=== PATIENT | male | born 1955 | race American Indian/Alaskan Native ===

== ENCOUNTER 2016-12-10 13:24 | Emergency (ER) | payer OTHER ==
[~2016-12-10] VITALS: Ht 180.3 cm; Wt 106.1 kg
[~2016-12-10 13:24] MED LIST: ALEVE220 M1 PO; CEPHALEXIN500 MG PO; CIPRO500 MG PO; CYCLOBENZAPRINE10 MG PO; FLOMAX0.4 MG PO; IBUPROFEN800 MG PO; NAPROXEN500 MG PO; NEXIUM20 MG PO; NORCO 5-325 TA1 EACH PO; PENICILLIN V P500 MG PO; PEPCID40 MG PO; PERCOCET 10-321 EACH PO; PROTONIX40 MG PO; TRAMADOL HCL50 MG PO; TRAZODONE HCL50 MG PO; ULTRAM50 MG PO; ZOFRAN ODT4 MG PO; ZOFRAN4 MG PO
[2016-12-10] MEDS ORDERED: OXYCODONE HCL5 MG PO (16:22)
[2016-12-10] MEDS ORDERED: ZOFRAN ODT4 MG PO (16:22)
== END 2016-12-10 18:51 | disposition home or self-care (01) ==
LOC: ED 13:24
DX: N23 Unspecified renal colic (principal); Z87.891 Personal history of nicotine dependence; Z88.5 Allergy status to narcotic agent; Z79.899 Other long term (current) drug therapy
CPT/HCPCS: 36415; 80053; 81001; 85025; 96374; 96375; 99283; J1170; J2405

== ENCOUNTER 2017-06-21 10:22 | Emergency (ER) | payer OTHER ==
[~2017-06-21] VITALS: Ht 180.3 cm; Wt 106.1 kg
[~2017-06-21 10:22] MED LIST changes: +OXYCODONE HCL5 MG PO
[2017-06-21] MEDS ORDERED: OMEPRAZOLE20 MG PO (10:50)
[2017-06-21] MEDS ORDERED: FLOMAX0.4 MG PO (11:50)
[2017-06-21] MEDS ORDERED: NORCO 5-325 TA1 EACH PO (11:50)
[2017-06-21] MEDS ORDERED: ZOFRAN ODT4 MG PO (11:50)
== END 2017-06-21 13:18 | disposition home or self-care (01) ==
LOC: ED 10:22
DX: N20.0 Calculus of kidney (principal); N13.4 Hydroureter; Z87.891 Personal history of nicotine dependence; Z88.5 Allergy status to narcotic agent; Z79.899 Other long term (current) drug therapy
CPT/HCPCS: 74176; 80053; 81001; 83690; 85025; 96361; 96374; 96375; 99284; J1170; J1885; J2405; J7030

== ENCOUNTER 2017-07-29 08:08 | Emergency (ER) | payer OTHER ==
[~2017-07-29] VITALS: Ht 180.3 cm; Wt 106.1 kg
[~2017-07-29 08:08] MED LIST changes: +OMEPRAZOLE20 MG PO
[2017-07-29] MEDS ORDERED: ONDANSETRON ODT8 MG PO (12:31)
[2017-07-29] MEDS ORDERED: NORCO 7.5-3251 EACH PO (12:31)
== END 2017-07-29 12:49 | disposition home or self-care (01) ==
LOC: ED 08:08
PROC: BT40ZZZ Ultrasonography of Bladder (ICD-10-PCS; principal; 2017-07-29)
DX: N20.1 Calculus of ureter (principal); Z88.5 Allergy status to narcotic agent; Z79.899 Other long term (current) drug therapy
CPT/HCPCS: 51798; 80053; 81001; 85025; 96374; 96375; 99283; J1885; J2405; J7030

== ENCOUNTER 2018-05-08 05:45 | Observation (INO) | payer MEDICARE, OTHER ==
--- NOTE | 2018-04-27 12:06 | NUR ---
PATIENT HERE TODAY FOR PREADMISSION APPOINTMENT. HE IS SCHEDULED TO HAVE A LEFT TOTAL KNEE ARTHROPLASTY ON 05/08/18. HE LIVES WITH A ROOMATE AND IS NOT SURE WHO WILL BE TAKING HIM HOME ON DISCHARGE OR TO APPOINTMENTS. WE TALKED IN LENGTH ABOUT THIS AND HE WILL MAKE ARRANGEMENTS BEFORE HE COME FOR SURGERY. HE HAS NO STEPS INTO THE HOME AND NO STEPS INSIDE THE HOME. HE DOES NOT HAVE A WALKER AND IS UNSURE OF HOW TO OBTAIN ONE. WE WILL LET CASE MANAGEMENT KNOW OF THIS. HE WILL LOOK INTO A SHOWER BENCH FOR THE WALK IN SHOWER. PHYSICAL THERAPY WAS CALLED DURING THIS APPOINTMENT AND HE WAS SET UP WITH AN APPOINTMENT TO ATTEND THE JOINT BOOT CAMP ON 05/04/18 AT 1645. HE VERBALIZED UNDERSTANDING OF THIS. THIS INFORMATION WILL BE SENT TO DR JENNINGS OFFICE AND CASE MANAGEMENT FOR FURTHER FOLLOW UP.
[~2018-05-08] VITALS: Ht 180.3 cm; Wt 106.1 kg
[~2018-05-08 05:45] MED LIST changes: +GLUCOPHAGE500 MG PO; +HYDROCODON-ACE1 EAC8 PO; +NORCO 7.5-3251 EACH PO; +ONDANSETRON ODT8 MG PO; +ZOLPIDEM TARTRA10 MG PO
--- NOTE | 2018-05-08 09:04 | NUR ---
05/08/18 0904 Carlee tSyles 0837- PT ARRIVES TO PACU AROUSABLE TO VOICE. PT IS ABLE TO REPORT NO PAIN OR NAUSEA. PT IS INSTANTLY BACK TO SLEEP. RESP EVEN AND UNLABORED. OXYGEN SAT LOW TO MID 90'S ON RA. PT IS CALM AT THIS TIME. 0854- WHEN PT IS FALLING ASLEEP THE PT WILL DESAT TO 89% ON RA. PT IS ABLE TO INCREASE HIS OXYGEN SAT TO 91% ON HIS OWN. PT WOKEN UP AND ENCOURAGED TO COUGH AND DEEP BREATHE. THE PT IS ABLE TO PERFORM THESE TASKS. OXYGEN SAT INCREASED TO 94% ON THIS. 0856- PT FALLS BACK TO SLEEP AND DESATS AGAIN TO 89% ON RA. PT WOKEN UP AND ENCOURAGED TO COUGH AND DEEP BREATHE. PT PLACED ON 2L VIA NC. 0858- CRYOCUFF PLACED TO PT'S LEFT KNEE WITH DRESSING IN BETWEEN SKIN AND THE CRYOCUFF. 0901- BLOOD SUGAR 166.
--- NOTE | 2018-05-08 09:35 | NUR ---
PT ARRIVED FROM PACU. PT AWAKE AND RESPONDING TO QUESTIONS APPROPRIATLY BUT DROWSY. SPINAL LEVEL L3, PT REPORTS NUMBNESS AND TINGLING "IN MY WHOLE LEG." GROSS MOVMENT NOTED. PERIPHERAL PULSES STRONG. PT REMAINS ON 2L O2 BY NC, O2 SATURATIONS ABOVE 92%. RISK FACTORS FOR SLEEP APNEA NOTED. PT TOLERATING SIPS OF WATER AND REQUESTS CHOCOLATE MILK, PROVIDED REQUESTED. PT DEMONSTRATES USE OF IS, REACHES 2500 ON SPIROMETER. PT DENIES PAIN AND NAUSEA AT THIS TIME. DRESSING CDI. INDIO DRESSING IN PLACE AND GREEN LIGHT FLASHING, BUZZING SOUND NOTED, WILL CONTINUE TO MONITOR. CRYO CUFF, SCD'S, AND JD HOSE IN PLACE. NO ORDER FOR HEEL PROTECTORS AT THIS TIME. BED RAILS UP. CALL LIGHT WITHIN REACH.
--- NOTE | 2018-05-08 10:25 | NUR ---
VITALS AND ASSESSMENT DUE. THIS RN TO BEDSIDE. PT RESTING WITH EYES CLOSED, SNORING NOTED. VITALS TAKEN. ASSESSMENT DONE. DRESSING ANDRÉS, INDIO CANISTER FLASHING GREEN LIGHT, BUZZING SOUND NOTED. SPINAL LEVEL L4. PT ABLE TO MOVE TOES, NOTES TINGING AND SOME NUMBNESS IN FEET. PT DENIES PAIN AND NAUSEA, TOLERATING SIPS OF WATER AND MILK. PT REMAINS ON 2L O2 BY NC WITH O2 SATURATIONS ABOVE 92%. PT DEMONSTRATES USE OF IS, REACHES 2250 ON SPIROMETER. CRYO CUFF, SCD'S AND JD HOSE IN PLACE. NO ADDITIONAL REQUESTS OR COMPLAINTS AT THIS TIME. BED RAILS UP. CALL LIGHT WITHIN REACH.
--- NOTE | 2018-05-08 11:25 | NUR ---
VITALS AND ASSESSMENT DUE. THIS RN TO BEDSIDE. PT RESTING WITH EYES CLOSED. PT FOUND LYING ON LEFT SIDE. PT MOVED TO SEMIFOWLER POSITION AND EDUCATION DONE REGARDING KNEE POSITIONING. PT VERBALIZES UNDERSTANDING. ASSESSMENT DONE. INDIO DRESSING CDI, GREEN LIGHT FLASHING, NO BUZZING NOTED. CMS INTACT, SPINAL RESOLVED. PT DENIES PAIN AND NAUSEA. PT ASSISTED WITH ORDERING LUNCH. CRYO CUFF, SCD'S, JD HOSE IN PLACE. PT DEMONSTARTES IS USE. NO ADDITIONAL REQUESTS OR COMPLAINTS AT THIS TIME. BED RAILSUP. CALL LIGHT WITHIN REACH.
--- NOTE | 2018-05-08 12:21 | NUR ---
SENT SCRIPT TO IN HOME [facility] FOR FRONT WHEELED WALKER TODAY
--- NOTE | 2018-05-08 12:25 | NUR ---
VITALS AND ASSESSMENT DUE. PT TALKING ON PHONE. PT DENIES PAIN AND NAUSEA BUT REPORTS OCCATIONAL DIZZINESS "WHEN I SIT UP." ASSESSMENT DONE. CMS INTACT, DRESSING ANDRÉS, GREEN LIGHT FLASHING ON INDIO CANISTER, BUZZING NOTED. ROOM AIR TRIAL ATTEMPTED, PT DESTATS TO 88% ON ROOM AIR. 1L O2 ATTEMPTED. PT MAINTAINTS AT 90% ON 1L O2 BY NC. PT LEFT ON 2L O2 BY NC, O2 SATURATION ABOVE 92%. PT FINISHED WITH LUNCH. TOLERATED WELL. PT DEMONSTRATES USE OF IS AND REACHES 2500 ON SPIROMETER. WATER REFILLED. BED RAILS UP. CALL LIGHT WITH IN REACH. CRYO CUFF, SCD'S, JD HOSE IN PLACE.
--- NOTE | 2018-05-08 13:02 | NUR ---
FWW BROUGHT TO ROOM FOR PHYSICAL THERAPY. PT CONTINUES TO DENY PAIN AND NAUSEA. NEW ICE PLACED IN CRYO CUFF. PT ABLE TO VOID 100ML IN URINAL. PT ASSISTED WITH DRESSING IN A NEW GOWN. BED RAILS UP. CALL LIGHT WITHIN REACH.
--- NOTE | 2018-05-08 13:49 | NUR ---
THIS RN TO ROOM TO CHECK ON PT. PT REPORTS UNDERWEAR ARE WET AND HE WOULD LIKE TO GET UP TO COMODE. THIS RN AND BETTE PATEL ASSIST PT UP TO COMODE. LINENS CHANGED. MEDICATION GIVE. PT ASSISTED BACK TO BED, 2PA, GAIT BELT, AND FWW. PT VOIDS BUT STATES "I WISH I COULD GO THE OTHER ONE." PT STATES HE IS LACTOSE INTOLERANT AND "SHOULDN'T HAVE HAD MILK I GUESS." CMS INTACT. DRESSING CDI. CRYO CUFF, JD HOSE, AND SCD'S IN PLACE. BED RAILSUP. CALL LIGHT WITHIN REACH.
--- NOTE | 2018-05-08 14:42 | NUR ---
PATIENT RESTING IN BED. VITAL SIGNS AND I&O DONE. CALL LIGHT WITHIN REACH. NO OTHER NEEDS AT THIS TIME
--- NOTE | 2018-05-08 15:22 | NUR ---
THIS RN TO ROOM TO CHECK ON PT. PT REPORTS PAIN IS "GETTING BETTER." NOW AT 5/10. PT RESTING IN BED TALKING WITH DIETARY. NO ADDITIONAL REQUESTS OR COMPLAINTS.
--- NOTE | 2018-05-08 15:54 | NUR ---
PT WORKING WITH PHYSICAL THERAPY AT THIS [facility]. HE IS 95% OXYGEN SATURATION ON ROOM AIR
[2018-05-08] MEDS ORDERED: FLOMAX0.4 MG PO (17:17)
--- NOTE | 2018-05-08 17:37 | NUR ---
AFTERNOON ASSESSMENT AND MEDICATIONS DUE. THIS RN TO BEDSIDE. PT EATING DINNER. PT DENIES NAUSEA AND REPORTS 4/10 PAIN. PT DENIES NEED FOR ADDITIONAL PAIN MEDICATION. PT IV FLUIDS RUNNING FOR REMAINDER OF BAG PER PT REQUEST. ASSESSMENT DONE. DRESSING CDI, GREEN LIGHT FLASHING ON INDIO CANISTER. CMS INTACT. PT VOIDING WELL. CRYOU CUFF, SCD'S, JD HOSE IN PLACE. PT WEANED TO ROOM AIR. MAINTAINING O2 SATURATIONS ABOVVE 92%. BED RAILS UP. CALL LIGHT WITHIN REACH.
--- NOTE | 2018-05-08 18:14 | NUR ---
PATIENT IN BED, VISITOR ON ROOM. FRESH WATER GIVEN. CRYO FILLED. CALL LIGHT IN REACH. NO FURTHER NEEDS AT THIS TIME.
--- NOTE | 2018-05-08 18:38 | NUR ---
THIS RN TO ROOM TO CHECK ON PT. PT REPORTS 7/10 PAIN IN LEFT KNEE. SEE MAR FOR MEDICATION GIVEN. FRESH WATER PROVIDED. CRYO CUFF, JD COHN, SCD'S IN PLACE. PT VISITING WITH SON. BED RAILS UP. CALL LIGHT WITHIN REACH. NO ADDITIONAL REQUESTS OR COMPLAINTS AT THIS TIME.
--- NOTE | 2018-05-08 18:45 | NUR ---
PT POST OP DAY ZERO FOR LEFT TKA. 2PA, FWW. PHYSIAL THERAPY X1 TODAY. PO OXYCODONE GIVEN X2 THIS SHIFT FOR 7/10 PAIN. CBG CHECKS WITH SLINDING SCALE INSULIN, 1 UNIT GIVEN TODAY. INDIO DRESSING IN PLACE, CDI, GREEN LIGHT FLASHING. CMS INTACT, SPINAL RESOLVED. PT VOIDING QUANTITY SUFFICIENT. CRYO CUFF, SCD'S, JD HOSE IN PLACE. PT WEANED TO ROOM AIR, CONTINIOUS PULSE OX IN PLACE. PT USING IS REGULARLY. NO NAUSEA THIS SHIFT. PT TOLERATING ADA DIET WELL. PT USES CALL LIGHT APPROPRIATELY.
--- NOTE | 2018-05-08 19:05 | NUR ---
RECEIVED REPORT FROM DAY SHIFT RN. PATIENT IS RESTING IN BED. PATIENT DENIES ANY NEEDS AT THIS TIME. CALL LIGHT IN REACH.
--- NOTE | 2018-05-08 20:45 | NUR ---
PATIENT ASSESMENT COMPLETED. PATIENT REPOSTIONED IN BED. PATIENTS EVENING MEDCIATIONS GIVEN PER ORDER. PATIENTS BS IS WNL, NO SS INSULIN REQUIRED. PATIENT RATES PAIN AT A 5/10 IN HIS LEFT KNEE. PATIENT GIVEN SHCEDULED PAIN MEDICATION PER ORDER. PATIENT DENIES THE NEED FOR ADDITIONAL PAIN MEDICATION AT THIS TIME. PATIENT REPOSITIONED IN BED. PATIENT HAS SCDS AND TEDHOSE ON BILAT LOWER EXT. PATIENT HAS CRYO APPLIED TO LEFT KNEE AND IT HAS SUFFICIENT ICE. PATIENT HAS INDIO IN PLACE, IT VIBRATES AT TIMES BUT GREEN LIGHT IS FLASHING. NO DRAINAGE NOTED. PATIENT DOES NOT HAVE HEEL PROTECTORS THERE IS NO ORDER. PATIENT IS ON AN AD DIET, TOLERATIN WELL, AND SNACKS PROVIDED. PATIENT IS SL AND IV FLUSHES WELL. PATIENT IS AAOX3. VITALS TAKEN AND RECORDED. INTAKE AND OUPUT RECORDED.
--- NOTE | 2018-05-08 20:55 | NUR ---
PATIENTS SCHEDULED ANXIETY MEDICATIONS NOT GIVEN. PATIENT IS DROWSY AND THERE IS CONCERN ANXIETY MEDICATIONS CAN BE SEDATING. DISCUSSED WITH PATIENT. PATIENT AGREES AND VERBALIZES UNDERSTANDING. PATIENT EDUCATED THAT IF HE NEEDS THEM HE CAN CALL AND REQUEST THEM. PATIENT VERBALIZES UNDERSTANDING. DISCUSSED HOLDING MEDICATIONS WITH DR. VILLANUEVA. DR VILLANUEVA AGREES WITH DECISION. NO NEW ORDERS.
--- NOTE | 2018-05-08 22:15 | NUR ---
PATIENTS RATES PAIN AT A 5/10 IN HIS LEFT KNEE. SCHEDULED TYLENOL GIVEN PER ORDER. PATIENT GIVEN PRN PAIN MEDICATION PER ORDER. PATIENT PLACED ON 1L NC TO KEEP SATURATIONS WNL. PATIENT DENIES ANY FURTHER NEEDS AT THIS TIME. CALL LIGHT IN REACH.
--- NOTE | 2018-05-09 02:05 | NUR ---
PATIENT ASSESMENT COMPLETED. PATIENTS VITALS TAKEN AND RECORDED. PATIENTS SCHEDULED 0200 GIVEN PER ORDER. PATIENT RATES PAIN AT A 5/10. PRN PAIN MEDICATION GIVEN PER ORDER. PATIENT IS RESTING IN BED. SCDS, TEDHOSE AND CRYO IN PLACE. CRYO REFILLED WITH ICE. PATIENT PROVIDED WITH SNACK. PATIENT DENIES ANY FURTHER NEEDS AT THIS TIME. CALL LIGHT IN REACH.
--- NOTE | 2018-05-09 03:17 | NUR ---
PATIENT CALLED AND YELLED "COME HERE NOW". WHEN ROOM WAS ENTERED PATIENT WAS FRANTICALLY TAKE BLANKETS OFF. PATIENT STATED "I AM HAVING AN ANXIETY ATTACK". PATIENT ASSISTED TO A STANDING WITH FWW. PATIENT AMBULATED FROM ROOM INTO THE [facility]ACON. PATIENT STATED "I NEED AIR AND I NEED IT NOW". PATIENT PUTINTO WHEEL CHAIR AND WAS PUSHED OUTSIDE TO GET FRESH AIR PER REQUEST. PATIENT AND MYSELF WHERE OUTSIDE FOR ABOUT 20 MINUTES. PATIENT STOOD BEHIND WHEELCHAIR AND AMBULATED ABOUT 20 FEET FROM OUTSIDE THE HOSPITAL BACK INTO THE HOSPITAL THE PATIENT WAS PLACED BACK INTO THE BED WITH SCDS, CRYO AND TEDHOSE INTO USE. PATIENT PROVIDED WITH COOL RAG AND FRESH ICE WATER. PATIENT RATES PAIN AT A 2/10. PATIENT DENIES THE NEED FOR PAIN MEDICATION AT THIS TIME. PATIENTS VITALS TAKEN AND RECORDED. CALL LIGHT IN REACH. KELSEY AMOS IN THE ROOM WITH PATIENT.
--- NOTE | 2018-05-09 03:57 | NUR ---
PATIENT WAS UP IN RECLINER AND UNCOMFORTABLE. PATIENT AMBUALTED IN ROOM WITH KELSEY AMOS. PATIENT PROVIDED WITH JELLO AND FRESH WATER. PATIENT IS NOW BACK IN BED RESTING. CRYO AND SCDS IN PLACE. PATIENT RATES PAIN AT A 4/10. PULSE OX IN PLACE. PATIENT IS ON RA AT THIS TIME. CALL LIGHT IN REACH.
--- NOTE | 2018-05-09 04:48 | NUR ---
PATIENT IS RESTING IN BED WITH EYES CLOSED. BREATHING IS EVEN AND UNLABORED, RR 18. PULSE OX READINGS ARE WNL. CALL LIGHT IN REACH.
--- NOTE | 2018-05-09 05:45 | NUR ---
PATIENT RESTED ON AND OFF THROUGHOUT THE SHIFT. PATIENT IS ON AN ADA DIET, TOLERATING WELL, NO NAUSEA NOTED. PATIENT IS ON RA. PULSE OX IN PLACE. PATIENT IS WORKING WITH PT. THUYS AND SARAH ON BILAT LOWER EXT. PATIENT HAS NO ORDER FOR HEEL PROTECTORS. PATIENT HAS CRYO IN PLACE ON LEFT KNEE. PATIENT HAS INDIO IN PLACE, GREEN LIGHT FLASHING. DRESSING C/D/I, NO DRAINAGE NOTED. SCOPE BEHIND RIGHT EAR. PATIENT IS AAOX3 AND USES CALL LIGHT APPROPRIATELY. PATIENT IS A SBA W/FWW. PATIENT DID HAVE AN EPISODE OF ANXIETY. PATIENT IS SL AND IV FLUSHES WELL.
--- NOTE | 2018-05-09 06:45 | NUR ---
PATIENTS VITALS TAKEN AND RECORDED. INTAKE AND OUPUT RECORDED. PATIENT GIVEN MORNING MEDICAITONS PER ORDER. PATIENT RATES PAIN AT A 4/10. PATIENT GIVEN PRN PAIN MEDICATION PER ORDER. CRYO REFILLED WITH ICE. NO FURTHER NEEDS NOTED CALL LIGHT IN REACH.
--- NOTE | 2018-05-09 07:15 | NUR ---
REPORT RECEIVED FROM FERNIE, YOAN. SITTING UP IN BED VISITING WITH COMMERCIAL PLUMBER. DRESSING ANDRÉS, CRYO CUFF, SCD'S, JD HOSE IN PLACE. PT REPORTS 5/10 PAIN THAT IS "GETTING BETTER." PT DENIES NAUSEA. BED RAILS UP. CALL LIGHT WITHIN REACH.
--- NOTE | 2018-05-09 09:13 | OR ---
[facility] [place] [facility] [address] [place], [place] [address] Signed DATE OF OPERATION: 05/08/2018 SURGEON: Devika Guido MD PREOPERATIVE DIAGNOSIS: Severe degenerative joint disease, left knee. POSTOPERATIVE DIAGNOSIS: Severe degenerative joint disease, left knee. PROCEDURE PERFORMED: Left total knee arthroplasty with computer navigation. PAVING CONTRACTOR: Marina Lagunas PA-C. ANESTHESIA: Spinal with peripheral block. BLOOD LOSS: 65 mL. IMPLANTS: Hopkins Triathlon size #7 femur, #6 tibia, 11 mm insert, and 38 mm patella. BRIEF HISTORY: Maurice is a 62-year-old gentleman with progressive worsening of arthritis. Nonoperative treatments had failed to control his symptoms. He wished to proceed. Risks, benefits, and alternatives were discussed at length. DESCRIPTION OF PROCEDURE: Once consent was obtained, he was taken to the operating room. After adequate anesthesia, he was placed on operating table. All downside pressure points were well padded. The left leg was placed in well-padded proximal thigh tourniquet and prepped and draped in a standard sterile fashion. He was also placed on hip bump. The left leg was then exsanguinated using Esmarch bandage. Tourniquet inflated to 250 mmHg. Standard anterior approach was taken through the skin and subcutaneous tissue. Flaps were developed medially and laterally. A median parapatellar arthrotomy was performed. The infrapatellar fat pad was excised. The medial capsule was then released all way around to the posteromedial corner. We left the MCL intact. The knee was then flexed. Electronically Signed By: DEVIKA GUIDO MD 05/09/18 0913 PATIENT NAME: JONO MENDOZA JR OPERATIVE REPORT DATE OF : 53 REPORT #: [id number] PHYSICIAN: DEVIKA GUIDO MD PCP: LIZET MACDONALD MD REPORT IS CONFIDENTIAL AND NOT TO BE RELEASED WITHOUT AUTHORIZATION [facility] [place] [facility] [address] [place], [place] [address] Signed The anterior horns of the menisci were transected and the ACL was transected. The PCL was found to be quite good. The navigation guide was pinned to the distal femur and the femur was registered with the computer. The distal femoral cutting block was then pinned in neutral alignment set to take about 1 mm off the lateral side, which was a bit hypoplastic. Cut was made with care taken to protect the surrounding soft tissues. I was a little unhappy with the cuts. We removed the cutting block back 2 mm more proximal and recut the femur with good bone purchase. The AP cutting block was then pinned in line with epicondylar axis and after sizing to #7. The anterior, posterior, and chamfer cuts were made. All excess bone and osteophytes were removed. Attention was then turned to the tibia. Navigation guide was pinned to the proximal tibia and the tibia was registered with the computer. The cutting block was then pinned in neutral alignment and set to take 2 mm off the most involved posterior lateral corner. The cut was made with care taken to protect the patellar tendon and MCL. The bone was excised as were any osteophytes off the posterior femur posterior release was performed. Flexion-extension gaps were sized and found to be symmetric at 11 mm. The trials were positioned using through range of motion and found to be quite stable from 0 to 130 degrees of flexion. The patella was cut, sized, and drilled for 38 mm patella. The drill holes on the femur were then made and the tibial keel punch was used to punch the keel. All trials were then removed and the bone was pulse lavaged and packed with dry Ray-Niurka. Cement was mixed. When it reached proper consistency, placed all implants on bone surfaces. Tibia was impacted into position first followed by the polyethylene and any overflow was removed. The femur was impacted into position. Again, overflow was removed and the knee was extended and nicely loaded. Patella was clamped and any remaining was removed. Cement was allowed to harden. Once it hardened sufficiently, the knee was flexed and any remaining overflow was removed using osteotomes. The knee was pulse lavaged at intervals throughout the procedure. A total of 3 L of antibiotic irrigation was used. The arthrotomy was then closed using #2 Stratafix, 0 Stratafix for the subcutaneous tissue, and Dermabond mesh for the skin. The wound was dressed with a INDIO wound VAC dressing with Jalil wrap. He was awakened taken to recovery room in satisfactory condition. All sponge, needle, and sponge counts were correct. Devika Guido MD BA/BRITTANYL /[id number] Electronically Signed By: DEVIKA GUIDO MD 05/09/18 0913 PATIENT NAME: JONO MENDOZA JR OPERATIVE REPORT DATE OF : 53 REPORT #: [id number] PHYSICIAN: DEVIKA GUIDO MD PCP: LIZET MACDONALD MD REPORT IS CONFIDENTIAL AND NOT TO BE RELEASED WITHOUT AUTHORIZATION [facility] [address] [place], [place] [address] Signed Copies: ~ Electronically Signed By: DEVIKA GUIDO MD 05/09/18 0913 PATIENT NAME: JONO MENDOZA JR OPERATIVE REPORT DATE OF : 53 REPORT #: [id number] PHYSICIAN: DEVIKA GUIDO MD PCP: LIZET MACDONALD MD REPORT IS CONFIDENTIAL AND NOT TO BE RELEASED WITHOUT AUTHORIZATION
--- NOTE | 2018-05-09 09:15 | NUR ---
MORNING ASSESSMENT AND MEDICATIONS DUE. THIS RN TO BEDSIDE. PT RESTING ON LEFT SIDE. PT REMINDED TO KEEP KNEE STRAIGHT WHILE IN BED. PT ASSISTED WITH REPOSITIONING. PT REPORTS 3/10 PAIN THAT "IS BETTER" AND LOCATED MOSTLY "ON THE BACK OF MY KNEE." O2 SATURATION ABOVE 92% ON ROOM AIR, CONTINIOUS PULSE OX DC'D. CMS INTACT. DRESSING CDI, GREEN LIGHT FLASHING ON INDIO CANISTER, NO BUZZING NOTED. PT DENIES NAUSEA. PT ASSISTED WITH ORDERING BREAKFAST. NO ADDITIONAL REQUESTS OR COMPLAINTS AT THIS TIME. CRYO CUFF, SCD'S AND JD HOSE IN PLACE. PIER HAND AT BEDSIDE TAKING VITAL SIGNS. BED RAILS UP. CALL LIGHT WITHIN REACH.
--- NOTE | 2018-05-09 09:20 | NUR ---
PATIENT IN BED WATCHING TV, RN IN ROOM. CRYO FILLED. CALL LIGHT IN REACH. NO FURTHER NEEDS AT THIS TIME.
[2018-05-09] MEDS ORDERED: XARELTO10 MG PO (09:22)
[2018-05-09] MEDS ORDERED: OXYCODONE HCL5 MG PO (09:23)
[2018-05-09] MEDS ORDERED: SENNA LAX8.6 MG PO (09:23)
[2018-05-09] MEDS ORDERED: MIRALAX17 GM PO (09:23)
[2018-05-09] MEDS ORDERED: MAPAP500 M1 PO (09:23)
[2018-05-09] MEDS ORDERED: GABAPENTIN600 MG PO (09:23)
[2018-05-09] MEDS ORDERED: ASPIRIN EC325 MG PO (09:25)
--- NOTE | 2018-05-09 10:13 | NUR ---
THIS RN TO CHECK ON PT. PT WORKING WITH PHYSICAL THERAPY. PT REPORTS 5/10 PAIN THAT "REALLY ISN'T THAT BAD." PT DENIES NEED FOR ADDITIONAL MEDICATION AT THIS TIME. PT CONTINUES WALKING WITH PHYSICAL THERAPY, NO ADDITIONAL REQUESTS OR COMPLAINTS.
--- NOTE | 2018-05-09 10:49 | NUR ---
THIS RN TO ROOM TO CHECK ON PT. PT REPORTS 6/10 PAIN AND STATES HE IS READY FOR ADDITIONAL PAIN MEDICATION (SEE MAR FOR MEDICAITON GIVEN). PT WATCHING TV. NO ADDITIONAL REQUESTS OR COMPLAINTS. CRYO CUFF, SCD'S, JD COHN IN PLACE. CALL LIGHT WITHIN REACH.
--- NOTE | 2018-05-09 12:17 | NUR ---
NOON ASSESSMENT AND MEDICATIONS DUE. THIS RN TO BEDSIDE. PT WATCHING TV. PT REPORTS 5/10 PAIN THAT "COMES AND GOES." PT DENIES NEED FOR ADDITIONAL PAIN MEDICATION AT THIS TIME. ASSESSMENT DONE. CMS INTACT. DRESSING CDI. GREEN LIGHT FLASHING ON INDIO CANISTER, NO BUZZING NOTED. CRYO CUFF, SCD'S, JD HOSE IN PLACE. INSULIN GIVEN (SEE MAR). PT EATING LUNCH. NO ADDITIONAL REQUESTS OR COMPLAINTS AT THIS TIME. BED RAILS UP. CALL LIGHT WITHIN REACH.
--- NOTE | 2018-05-09 13:30 | NUR ---
PT STATES HE IS READY FOR DISCHARGE. MD CALLED AND UPDATED ON PT CONDITION. MD STATES OK TO DISCHARGE PT PER ORDER. CHARGE NURSE NOTIFIED.
--- NOTE | 2018-05-09 13:52 | NUR ---
PT DRESSED AND READY FOR DISCHARGE. THIS RN TO BEDSIDE. VITALS TAKEN. PIV DC'D PER PROTOCOL. DISCHARGE INSTRUCTIONS REVIEWED WITH PT. PT VERBALIZES UNDERSTANDING AND STATES HIS QUESTIONS HAVE BEEN ANSWERED. PT REQUESTS PAIN MEDICAITON BEFORE DISCHARGE FOR 5/10 PAIN IN LEFT KNEE. PHARACIST TO BEDSIDE TO REVIEW MEDICAITONS WITH PATIENT. PT VERBALIZES UNDERSTANDING OF MEDICATIONS AND STATES HIS QUESTIONS HAVE BEEN ANSWERED. PT WAITING FOR "MY BOSS" WHO WILL BE TAKING PT HOME. PT ADVISED THAT HE MUST HAVE A RIDE TO APPOINTMENTS AND ALL OTHER DRIVING WHILE TAKING NARCOTICS. PT VERBALIZES UNDERSTANDING. CALL LIGHT WITHIN REACH.
--- NOTE | 2018-05-09 14:19 | NUR ---
PT FRIEND ARRIVED TO TAKE PT HOME. MEDICATION GIVEN. PHARACIST STATES THE PTS RXS WERE SENT TO [facility] WHICH IS NOT OPEN TODAY. RX WRITTEN TO GIVE PT ONE DAY SUPPLY UNTIL HE CAN PROVIDER SCRIBE HIS RXS TOMORROW. PT VERBALIZES UNDERSANDING OF WHAT MEDICATIONS TO TAKE THIS EVENING. PT WAITING FOR PHARCIST TO DELIVER TABLETS. NO ADDITIONAL REQUESTS OR COMPLAINTS.
--- NOTE | 2018-05-09 14:45 | NUR ---
PT CALL LIGHT ON. PT STATES HE HAS RECEIVED HIS MEDICATION AND IS READY FOR DISCHARGE. PT WHEELED FROM UNIT TO MEET FRIEND/"BOSS" AT FRONT OF HOSPITAL. NO ADDITIONAL REQUESTS, COMPLAINTS, OR QUESTIONS.
== END 2018-05-09 14:45 | disposition home or self-care (01) ==
LOC: DSVR 05:45 → MS 05:45 → DSVR 05:45 → DS 05:45 → MS 06:45 → EDSTATUS 06:45 → DS 08:30 → MS 08:31 → DSVR 09:15 → MS 05-09 14:45
PROVIDERS: ADMIT Specialist
PROC: 8E0YXBZ Computer Assisted Procedure of Lower Extremity (ICD-10-PCS; 2018-05-08)
PROC: 3E0T3BZ Introduction of Anesthetic Agent into Peripheral Nerves and Plexi, Percutaneous Approach (ICD-10-PCS; 2018-05-08)
PROC: 3E0T33Z Introduction of Anti-inflammatory into Peripheral Nerves and Plexi, Percutaneous Approach (ICD-10-PCS; 2018-05-08)
PROC: 0SRD0J9 Replacement of Left Knee Joint with Synthetic Substitute, Cemented, Open Approach (ICD-10-PCS; principal; 2018-05-08 06:45)
DX: M17.12 Unilateral primary osteoarthritis, left knee (principal); N40.1 Benign prostatic hyperplasia with lower urinary tract symptoms; G89.18 Other acute postprocedural pain; N13.8 Other obstructive and reflux uropathy; E11.9 Type 2 diabetes mellitus without complications; F51.4 Sleep terrors [night terrors]; K21.9 Gastro-esophageal reflux disease without esophagitis; Z87.891 Personal history of nicotine dependence; Z88.5 Allergy status to narcotic agent; Z79.899 Other long term (current) drug therapy; Z79.84 Long term (current) use of oral hypoglycemic drugs; Z79.891 Long term (current) use of opiate analgesic
CPT/HCPCS: 01402; 36415; 64447; 64450; 76942; 80048; 85025; 94762; 97110; 97116; 97162; C1713; C1776; G0378; G8978; G8979; J0690; J1100; J1815; J1885; J2250; J2300; J2704; J2795; J3010; J3475; J7120

== ENCOUNTER 2018-11-01 05:45 | Day surgery (SDC) | payer MEDICARE, MEDICAID ==
[~2018-11-01] VITALS: Ht 180.3 cm; Wt 103.4 kg
--- NOTE | ~2018-11-01 | OR ---
[facility] [address], [place] [address] Draft DATE OF OPERATION: 11/01/2018 SURGEON: Devika Guido MD PREOPERATIVE DIAGNOSIS: Painful hardware, right ankle. POSTOPERATIVE DIAGNOSIS: Painful hardware, right ankle. PROCEDURE PERFORMED: Hardware removal, right ankle, deep. PLASTERER ROUGH: Marina Lagunas PA-C. Marina was present and critical for all portions of procedure. ANESTHESIA: General. BLOOD LOSS: Minimal. BRIEF HISTORY: Jono is a 63-year-old gentleman who underwent a successful ankle fusion with two 6.5 screws. The screw heads were quite prominent under his skin and caused him quite a bit of pain. He wished to have them removed. Since he had a solid fusion, I saw no problem with this. Risks, benefits, and alternatives were discussed and he elected to proceed. DESCRIPTION OF PROCEDURE: Once consent was obtained, he was taken to the operating room. After adequate anesthesia, he was placed on operating room table. All downside pressure points were well padded. The right leg was prepped and draped in a standard sterile fashion. The lateral screw was easily palpable and a 1 cm incision was made overlying this. Blunt dissection was taken down to the screw head. Using the large star local flatbed driver, we removed the screw uneventfully. The 2nd screw was approached medially and again removed uneventfully. The wounds were copiously irrigated with antibiotic solution, closed with 3-0 nylon, dressed with Mepilex dressing and gauze, and he was awakened and taken to the recovery room in satisfactory condition. All sponge, needle, and instrument counts were correct. PATIENT NAME: JONO MENDOZA JR OPERATIVE REPORT DATE OF : 53 REPORT #: [id number] PHYSICIAN: DEVIKA GUIDO MD PCP: LIZET MACDONALD MD REPORT IS CONFIDENTIAL AND NOT TO BE RELEASED WITHOUT AUTHORIZATION [address] [place] [id number] Draft Devika Guido MD BA/HUANG /[id number] Copies: ~ PATIENT NAME: JONO MENDOZA JR OPERATIVE REPORT DATE OF : 53 REPORT #: [id number] PHYSICIAN: DEVIKA GUIDO MD PCP: LIZET MACDONALD MD REPORT IS CONFIDENTIAL AND NOT TO BE RELEASED WITHOUT AUTHORIZATION
[~2018-11-01 05:45] MED LIST changes: +ASPIRIN EC325 MG PO; +GABAPENTIN600 MG PO; +GLIPIZIDE XL2.5 MG PO; +MAPAP500 M1 PO; +MIRALAX17 GM PO; +SENNA LAX8.6 MG PO; +XARELTO10 MG PO
[2018-11-01] MEDS ORDERED: BAYER CHEWABLE81 MG PO (08:27)
[2018-11-01] MEDS ORDERED: CELECOXIB200 MG PO (09:59)
[2018-11-01] MEDS ORDERED: OXYCODONE HCL5 MG PO (09:59)
--- NOTE | 2018-11-01 10:13 | NUR ---
11/01/18 1013 Elie Mejia 1000) ARRIVES VERY SLEEPY WITH ORAL AIRWAY IN PLACE. BLOOD SUGAR 127 UPON ARRIVAL
--- NOTE | 2018-11-01 11:06 | NUR ---
PT ARRIVES TO DS RM 3 FROM PACU WITH EYES CLOSED. RESP EVEN AND UNLABORED ON RA. PT AROUSES TO VERBAL COMMAND AND QUICKLY FALLS BACK ASLEEP, SNORING. PT SATS 92-93% ON RA WITH CONT PULSE OXIMETER LEFT IN PLACE. PT DENIES NAUSEA OR PAIN WHILE AWAKE. PROVIDED ICED WATER AND JELLO. CALL LIGHT WITHIN REACH.
--- NOTE | 2018-11-01 11:09 | NUR ---
UPPER DENTURE AND BILAT HEARING AIDS IN PLACE.
--- NOTE | 2018-11-01 11:55 | NUR ---
VERY SLEEPY BUT DOES ROWSE WHEN TALKED TO
--- NOTE | 2018-11-01 13:07 | NUR ---
PT RESTING IN BED WITH EYES CLOSED ON ARRIVAL TO . PT WAKES UP TO VERBAL COMMAND AND STATES, "I HAVE TO PEE." PT SITS ON SIDE OF BED PRIOR TO STANDING, DENIES NAUSEA OR DIZZINESS WITH POSITION CHANGE. PT AMBULATES TO BATHROOM WITH RN ASSIST, STEADY GAIT. PT ABLE TO VOID 800 MLS YELLOW URINE WITH NO PROBLEMS. PT BACK TO BED WITH R LEG ELEVATED ON PILLOW AND SCD'S IN PLACE. PT DENIES PAIN WHILE IN BED AND STATES "SOME PAIN IN RIGHT HEEL" WITH AMBULATION RATES PAIN 2/10. PT BACK IN BED, EATING JELLO. CALL LIGHT WITHIN REACH. PT EDUCATED ABOUT PAIN. LUNCH ORDERED.
--- NOTE | 2018-11-01 14:02 | NUR ---
1345: PT TOLERATES LUNCH WELL. 1355: PACKAGED STERILIZED HARDWARE RETURNED TO PT. PT CALLS FRIEND FOR RIDE HOME. DC INSTRUCTIONS GIVEN TO PT, PAPER COPY OF PAIN PRESCRIPTION GIVEN TO PT. ALL QUESTIONS ADDRESSED. PT DRESSES SELF WITH DRAWN CURTAINS.
--- NOTE | 2018-11-01 15:10 | NUR ---
1410: PT DC'S VIA WC FROM DS RM 3 TO FRONT ENTRANCE OF HOSPITAL TO HOME WITH FRIEND, SUZAN.
== END 2018-11-01 14:10 | disposition home or self-care (01) ==
LOC: OPS 05:45 → DS 05:45 → OPS 09:30 → DS 12:00 → OPS 12:00 → DS 11-03 06:45
PROVIDERS: Specialist
PROC: 0SPF04Z Removal of Internal Fixation Device from Right Ankle Joint, Open Approach (ICD-10-PCS; principal; 2018-11-01 09:30)
DX: T84.84XA Pain due to internal orthopedic prosthetic devices, implants and grafts, initial encounter (principal); I10 Essential (primary) hypertension; K21.9 Gastro-esophageal reflux disease without esophagitis; M19.90 Unspecified osteoarthritis, unspecified site; N20.0 Calculus of kidney; E11.9 Type 2 diabetes mellitus without complications; F41.9 Anxiety disorder, unspecified; N40.0 Benign prostatic hyperplasia without lower urinary tract symptoms; Z79.82 Long term (current) use of aspirin; Z79.899 Other long term (current) drug therapy; Z79.84 Long term (current) use of oral hypoglycemic drugs; Z88.5 Allergy status to narcotic agent; Z88.4 Allergy status to anesthetic agent; Z88.8 Allergy status to other drugs, medicaments and biological substances; Z87.891 Personal history of nicotine dependence
CPT/HCPCS: 01480; 73600; J0690; J1100; J1885; J2250; J2405; J2704; J3010; J7120

== ENCOUNTER 2019-01-12 12:09 | Inpatient (IN) | payer MEDICARE, MEDICAID ==
[~2019-01-12] VITALS: Ht 180.3 cm; Wt 101.6 kg
[~2019-01-12 12:09] MED LIST changes: +BAYER CHEWABLE81 MG PO; +CELECOXIB200 MG PO; +GABAPENTIN300 MG PO; +HYDROXYZINE HCL50 MG PO
--- OUTSIDE RECORDS SUMMARY | 2019-01-12 12:12 | XMS ---
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 Terrie VISIT COUNT (12 MO.) [facility] TOTAL 3 NOTE: Visits indicate total known visits. ED/UCC VISIT TRACKING (12 MO.) 01/12/2019 12:09 [facility] TYPE: Emergency COMPLAINT: - SORE THROAT, BLOOD WORK PROBLEM 12/23/2018 12:21 [facility] TYPE: Emergency COMPLAINT: - FLANK PAIN, URINE PROBLEM DIAGNOSES: - Allergy status to other drugs, medicaments and biological substances status - Hematuria, unspecified - Personal history of urinary calculi - Other fpc (current) drug therapy - Allergy status to narcotic agent status - Urinary tract infection, site not specified 11/26/2018 11:45 [facility] TYPE: Emergency COMPLAINT: - BACK ABD PAIN/NON INJURY INPATIENT VISIT TRACKING (12 MO.) 11/26/2018 17:14 [facility] TYPE: Medical Surgical COMPLAINT: - SEPSIS/UTI/SVT DIAGNOSES: - Type 2 diabetes mellitus without complications - Other fpc (current) drug therapy - Severe sepsis with septic shock - Gastro-esophageal reflux disease without esophagitis - Other fpc (current) drug therapy - Supraventricular tachycardia - long-term (current) use of oral hypoglycemic drugs - Allergy status to narcotic agent status - Headache - termination clerk (current) use of aspirin - long-term (current) use of non-steroidal anti-inflammatories (NSAID) - Supraventricular tachycardia - Allergy status to other drugs, medicaments and biological substances status - long-term (current) use of non-steroidal anti-inflammatories (NSAID) - Gastro-esophageal reflux disease without esophagitis - Type 2 diabetes mellitus without complications - Benign prostatic hyperplasia without lower urinary tract symptoms - Acute cystitis without hematuria - Acute cystitis without hematuria - Unspecified osteoarthritis, unspecified site - Headache - Sepsis due to Escherichia coli [E. coli] - Psychophysiologic insomnia - Benign prostatic hyperplasia without lower urinary tract symptoms - Sepsis due to Escherichia coli [E. coli] - Allergy status to other drugs, medicaments and biological substances status - termination clerk (current) use of oral hypoglycemic drugs - Unspecified osteoarthritis, unspecified site - Psychophysiologic insomnia - long-term (current) use of aspirin - Sepsis, unspecified organism - Allergy status to narcotic agent status - Severe sepsis with septic shock 05/08/2018 08:31 [facility] TYPE: Observation COMPLAINT: - LEFT TOTAL KNEE REPLACEMENT DIAGNOSES: - Personal history of nicotine dependence - Panic disorder [episodic paroxysmal anxiety] - Allergy status to narcotic agent status - termination clerk (current) use of opiate analgesic - Panic disorder [episodic paroxysmal anxiety] - Unilateral primary osteoarthritis, left knee - Gastro-esophageal reflux disease without esophagitis - Benign prostatic hyperplasia with lower urinary tract symptoms - Type 2 diabetes mellitus without complications - Sleep terrors [night terrors] - Other acute postprocedural pain - long-term (current) use of oral hypoglycemic drugs - Other fpc (current) drug therapy - Other obstructive and reflux uropathy [email or web address]
--- NOTE | 2019-01-12 22:57 | NUR ---
PT ARRIVED IN CCU AT 2204. PT IS AAOX4, ALL LOBES ARE CLEAR, OVERALL STRENGHT IS +5, NO PERIPHERAL EDEMA NOTED, PT STATED THAT HE IS HAVING SOME MILD PAIN IN HIS LOWER ABDOMEN AND BURNING WHEN URINATING. TEMP. AT ARRIVAL WAS 100.4 F, PRN TYLENOL WAS GIVEN, PT WAS ALSO TACHY WITH HR OF 110-118. PT WAS WORRIED ABOUT HIS BG BEING HIGH. BLOOD GLUCOSE UPON ARRIVAL TO CCU WAS 162. PT VOIDED 300ML SO FAR.
--- NOTE | 2019-01-13 00:30 | NUR ---
V/S ARE WDL, PT IS SLEEPING. NO NEW CONCERNS NOTED AT THIS TIME.
--- NOTE | 2019-01-13 02:00 | NUR ---
PT REPOSITIONED, ASSESSMENT DONE AND IV STEROID GIVEN. PT DENIES PAIN OR OTHER NEEDS, ALTHOUGH SHE STATES SHE HAS NOT BEEN SLEEPING WELL.
--- NOTE | 2019-01-13 02:07 | NUR ---
V/S ARE WDL. PT IS STILL SLEEPING. NO NEW CONCERNS NOTED.
--- NOTE | 2019-01-13 03:30 | NUR ---
PT REPOSITIONED ONTO RIGHT SIDE, ASSESSMENT UNCHANGED FROM PREVIOUS.
--- NOTE | 2019-01-13 04:46 | NUR ---
PT IS STILL SLEEPING. V/S ARE WDL. NO NEW CONCERNS NOTED. SECOND ASSESSMENT WAS UNCHANGED FROM THE FIRST.
--- NOTE | 2019-01-13 06:28 | NUR ---
PT AT THIS TIME IS STILL SLEEPING. V/S ARE WDL, URINE OUTPUT HAS BEEN ADEQUATE SINCE ARRIVAL IN CCU. PT AT THIS TIME IS AFEBRILE AND HR IS <100.
--- NOTE | 2019-01-13 09:01 | NUR ---
PT AWAKE, BKF ORDERED AND PT IS CURRENTLY EATTING IT AT THIS TIME. PT REFUSED TO GET OUT OF BED TO THE CHAIR FOR BKF THIS AM. VOIDED CORBY IN COLOR URINE 400MLS INTO URINAL AT THE BEDSIDE.
--- NOTE | 2019-01-13 10:01 | NUR ---
AFTER EATTING BKF PT HAS DEVELOPED A COUGH, WITH SPUTUM CLEAR IN COLOR. PT DENIES PAIN AT THIS TIME, LUNGS ARE CLEAR.
--- NOTE | 2019-01-13 11:06 | NUR ---
pt appears to be sleeping at this time.
--- NOTE | 2019-01-13 12:15 | NUR ---
PT UP AMBULATING WITH PHYSICAL THEAPY AT THIS TIME, OUT OF THE UNIT.
--- NOTE | 2019-01-13 12:36 | NUR ---
PT UP TO THE CHAIR FOR LUNCH AT THIS TIME. PT IS WILLING TO SHOWER AFTER LUNCH.
--- NOTE | 2019-01-13 13:48 | NUR ---
PER PTS REQUEST A NEW IV SITE WAS STARTED. PT NOW HAS IV FLUIDS RUNNING SO A NEW SITE WAS OBTAINED IN HIS LEFT FOREARM. PT TOLERATED THIS WELL AND THE RIGHT AC WAS SALINE LOCKED. REPORT GIVEN TO M/S AND ALL QUESTIONS ANSWERED.
--- NOTE | 2019-01-13 13:54 | NUR ---
PT AMBLATED TO ROOM 115 AT THIS TIME WITH ALL PERSONAL BELONGINGS AND CHART.
--- NOTE | 2019-01-13 14:10 | NUR ---
PT ARRIVED FROM CCU, REPORT RECEIVED FROM BETTE DOUGLAS. PT AMBULATED TO MED/SURG WITH SBA. PT STEADY ON FEET. ROOM ORIENTATION COMPLETED. VSS. PT AFEBRIAL AT THIS TIME. ASSESSMENT DONE. OCCATIONAL PRODUCTIVE COUGH NOTED, SPUTUM SAMPLE ALREADY SENT TO LAB, LUNG SOUNDS CLEAR AT THIS TIME. PT REQUESTS RAC PIV BE DISCONTINUED DUE TO PAIN. PIV DC'D PER PROTOCOL, GAUZE AND COBAN APPLIED. FLUIDS INFUSING THROUGH LFA PIV. PT REPORTS CONSTIPATION, NIO MEDICATIONS ORDERED AND GIVEN. PT REPORTS 6/10 HEADACHE PAIN. SEE MAR FOR MEDICATION GIVEN. PT VISITING WITH FIREND. NO ADDITIONAL REQUESTS OR COMPLAINTS AT THIS TIME. CALL LIGHT WITHIN REACH.
--- NOTE | 2019-01-13 15:20 | NUR ---
MEDICATION DUE. GIVEN ORDERED. PT RESTING IN BED WATCHING TV. PORDUCTIVE COUGH CONTINUES. PT SPITTING OUT WHITE/CLEAR PHLEM. NO REQUESTS OR COMPLAINTS AT THIS TIME. CALL LIGHT WITHIN REACH.
--- NOTE | 2019-01-13 17:02 | NUR ---
THIS RN TO ROOM TO CHECK ON PT. PT RESTING ON LEFT SIDE WITH EYES CLOSED. BED RAILS UP. CALL LIGHT WITHIN REACH.
--- NOTE | 2019-01-13 17:34 | NUR ---
THIS RN TO ROOM TO CHECK ON PT. PT FINISHED WITH DINNER. PT STATE HIS HEADACHE IS "STILL THERE" PT STATES "IT'S BECAUSE OF THE COUGH, I NEED COUGH DROPS." PT DECLINES COLD PACK. FLOSS PROVIDED PER PT REQUEST. NO ADDITIONAL REQUESTS OR COMPLAINTS. CALL LIGHT WITHIN REACH.
--- NOTE | 2019-01-13 18:09 | NUR ---
PT TRANSFERED FROM CCU THIS SHIFT. PT INDEPENDANT IN ROOM. 10/16 HEADACHE THIS SHIFT THAT PT STATES IS BECAUSE OF COUGHT. TYELNOL GIVEN, ICE PACK PROVIDED. PT WOULD LIKE COUGH DROPS. PT TOELRATING 60G CARB DIET. NO INSULIN NEEDED FOR DINNER. VOIDING QUANTITY SUFFICIENT. PT USES CALL LIGHT APPROPRIATLY.
--- NOTE | 2019-01-13 18:17 | NUR ---
FLUID RATE DECREASED PER MD ORDER. PT CONTINUES TO RATE HEADACHE PAIN AT 10/16. SEE MAR FOR MEDICATION GIVEN. PT WATCHING TV. BED RAILS UP. CALL LIGHT WITHIN REACH.
--- NOTE | 2019-01-13 19:05 | NUR ---
SHIFT REPORT RECEIVED FROM [facility] RN CHRISTOPHER AT BEDSIDE. PT AWAKE AND RESTING IN BED, RESPIRATIONS EVEN AND UNLABORED. PT REQUESTING COUGH DROPS FOR SORE THROAT RELATED TO COUGH, THIS RN WILL DISCUSS PT REQUEST WITH MD. NO FURTHER REQUESTS, CALL LIGHT IN REACH. IV FLUIDS INFUSING, IV SITE WNL.
--- NOTE | 2019-01-13 19:17 | NUR ---
CHARGE NURSE REPORT RECEIVED FROM MARY
--- NOTE | 2019-01-13 20:45 | NUR ---
DISCUSSED WITH DR FERNÁNDEZ, PT'S REQUEST FOR COUGH DROPS RELATED TO SORE THROAT FROM COUGH. VERBAL ORDER READ BACK FROM MD FOR THROAT LOZENGE PRN.
--- NOTE | 2019-01-13 21:20 | NUR ---
VS, blood sugar check, and I&Os complete. Patient requested a shower and BETTE Mendoza approved but would like to give his night meds first.
--- NOTE | 2019-01-13 21:30 | NUR ---
ASSESSMENT COMPLETE, VSS. ACCUCHECK RESULT WNL, NO INSULIN SS PROVIDED (SEE EMAR). IV FLUIDS INFUSING PER MD ORDERS, IV SITE WNL. PRN THROAT LOZENGE PROVIDED. LUNG SOUNDS CLEAR, RR WNL. NO DISTRESS NOTED, PT APPEARS COMFORTBALE AND IS INTERACTING WITH NURSING STAFF. NO FURTHER NEEDS, CALL LIGHT IN REACH.
--- NOTE | 2019-01-13 21:40 | NUR ---
NOTIFIED DR FERNÁNDEZ THAT ORDERED BLOOD CULTURES NOT YET COLLECTED. LAB ALSO NOTIFED AND AWAITING THEIR ARRIVAL TO COMPLETE BLOOD CULTURE. DISCUSSED WITH MASH PROCESSING OPERATOR, MASH PROCESSING OPERATOR AGREED TO WAIT TO START SCHEDULED IV ABX UNTIL AFTER BLOOD CULTURES COLLECTED LAST IV ABX WAS GREATER THAN 24 HRS.
--- NOTE | 2019-01-13 22:30 | NUR ---
BERNADETTE FROM LAB IN ROOM TO COMPLETE ORDERS BLOOD CULTURE COLLECTION.
--- NOTE | 2019-01-13 22:50 | NUR ---
IV ABX INFUSING PER MD ORDERS, IV SITE WNL. PT DENIES ADDITIONAL NEEDS. CALL LIGHT IN REACH.
--- NOTE | 2019-01-13 23:36 | NUR ---
IV ABX COMPLETE, MAINTENANCE FLUIDS RESUMED PER MD ORDERS. IV SITE WNL. FRESH ICE WATER PROVIDED. NO ADDITIONAL NEEDS, CALL LIGHT IN REACH.
--- NOTE | 2019-01-14 01:12 | NUR ---
PT RESTING IN BED, EYES CLOSED. RR WNL, NO DISTRESS NOTED. IV FLUIDS INFUSING PER MD ORDERS, IV SITE WNL. CALL LIGHT IN REACH.
--- NOTE | 2019-01-14 02:30 | NUR ---
PT RESTING IN BED, EYES CLOSED. RR WNL. NO DISTRESS NOTED. CALL LIGHT IN REACH.
--- NOTE | 2019-01-14 03:27 | NUR ---
ROUNDING ON PT. URINAL EMPTIED. NEW BAG OF IV FLUIDS HUNG AND INFUSING PER MD ORDERS. WARM BLANKET PROVIDED, ORAL TEMP WNL. NO ADDITIONAL NEEDS, CALL LIGHT IN REACH.
--- NOTE | 2019-01-14 04:34 | NUR ---
PT HAD A GOOD NIGHT, A/OX4. VSS. SBA WITH AMBULATION. IV LR @75MLS/HR, IV SITE WNL. PAIN CONTROLLED WITH SCHEDULED AND PRN PAIN MEDICATIONS. BLOOD CULTURES COLLECTED THIS SHIFT, IV ROCEPHIN. PT VOIDING QS, NO BM THIS SHIFT. 60 CARB DIET, TOLERATING WELL, INSULIN WNL THIS SHIFT. NO INSULIN SS GIVEN. USES CALL LIGHT APPROPERIATELY.
--- NOTE | 2019-01-14 06:25 | NUR ---
ASSESSMENT COMPLETE, NO NEW CHANGES OR CONCERNS. PT A/OX4, VSS. IV FLUIDS INFUSING PER MD ORDERS, IV SITE WNL. PRN TYLENOL GIVEN FOR 5/10 PAIN R/T HEADAHCE. NO ADDITIONAL NEEDS, CALL LIGHT IN REACH.
--- NOTE | 2019-01-14 08:43 | NUR ---
IN TO DO PTS INITIAL CASE MANAGEMENT ASSESSMENT. PT STATES HE IS SAFE AT HOME, AND HAS NO NEEDS.
--- NOTE | 2019-01-14 08:50 | NUR ---
PT AWAKE IN BED WATCHING TV. ATE 100% OF BREAKFAST, KIMBERLY WELL. PT REPORTS 5/10 HEADACHE PAIN. RECIEVED TYLENOL BY NIGHTSHIFT. PT STATES THE HEADACHE IS FROM COUGHING. REQUESTED THROAT LOZENGE, GIVEN. ASSESSMENT COMPLETED. PT ALERT AND ORIENTED TO ALL. CALL LIGHT WITHIN REACH.
--- NOTE | 2019-01-14 09:48 | NUR ---
PATIENT IS IN BED, THIS CNA2 ASKED IF THE PATIENT WANTS TO TAKE A SHOWER PATIENT STATED HE WILL TAKE A SHOWER LATER
--- NOTE | 2019-01-14 12:00 | NUR ---
PT APPEARS TO BE SLEEPING. EYES CLOSED, RESP EVEN AND UNLABORED.
--- NOTE | 2019-01-14 13:52 | NUR ---
PT C/O HEADACHE, 7/10 PAIN RATING. GAVE MOTRIN 400 MG PO PRN.
--- NOTE | 2019-01-14 15:42 | NUR ---
PT SITTING UP IN BED WATCHING TV. DENIES NEEDS OR CONCERNS AT THIS TIME. CALL LIGHT WITHIN REACH.
--- NOTE | 2019-01-14 17:40 | NUR ---
CALL LIGHT ANSWERED. PATIENT RESTING IN BED. PATIENT WANTS TO TAKE A SHOWER. IV WRAPPED. SETS UP BATHROOM. PATIENT COMPLAINS ABOUT SOME RASH BETWEEN HIS LEGS. RN NOTIFIED. CALL LIGHT WITHIN REACH. NO OTHER NEEDS AT THIS TIME
--- NOTE | 2019-01-14 17:51 | NUR ---
PT SITTING UP IN BED EATING DINNER. KIMBERLY WELL. DENIES NEEDS OR CONCERNS AT THIS TIME. CALL LIGHT WITHIN REACH.
--- NOTE | 2019-01-14 20:43 | NUR ---
ROUNDED CHARGE. PATIENT IS RESTING IN BED. SONA RN IN ROOM AND YOSI EDWARDS TAKING PATIENTS VITALS. PATIENT DENIES ANY COMMENTS, QUESTIONS, OR CONCERNS. NO NEEDS NOTED.
--- NOTE | 2019-01-14 21:30 | NUR ---
ASSESSMENT COMPLETE, VSS. PT A/OX4 AND ON RA. IV SITE TO LEFT FOREARM INFILTARTED AND SORE WHEN FLUSHED. REMOVED BY BETTE MACILE, TIP INTACT. NEW 22G IV PLACED TO RIGHT FOREARM, PT TOLERATED PROCEDURE WELL. IV ABX INFUSING PER MD ORDERS. PRN INSOMNIA MEDICATION PROVIDED ALONG WITH PRN TYLENOL. NO ADDITIONAL NEEDS, CALL LIGHT IN REACH.
--- NOTE | 2019-01-14 22:27 | NUR ---
PT RESTING IN BED, EYES CLOSED. RR WNL. PT SALINE LOCKED, IV SITE FLUSHED, SITE WNL. URINAL EMPTIED. NO ADDITIOANL NEEDS, CALL LIGHT IN REACH.
--- NOTE | 2019-01-14 23:07 | NUR ---
PT RESTING IN BED, EYES CLOSED. RR WNL. PT APPEARS COMFORTABLE, NO DISTRESS NOTED. CALL LIGHT IN REACH.
--- NOTE | 2019-01-15 01:42 | NUR ---
PT RESTING IN BED, EYES CLOSED. NO DISTRESS NOTED, PT APPEARS COMFORTABLE. CALL LIGHT IN REACH.
--- NOTE | 2019-01-15 03:40 | NUR ---
ASSESSMEN COMPLETE, NO NEW CHANGES OR CONCERNS. PT A/OX4, REPORTS 4/10 PAIN. PRN TYLENOL ADMINISTERED. URINAL EMPTIED, FRESH WATER AT BEDSIDE. NO FURTHER NEEDS, CALL LIGHT IN REACH.
--- NOTE | 2019-01-15 05:50 | NUR ---
PT RESTING IN BED, EYES CLOSED. RR WNL. NO DISTRESS NOTED, CALL LIGHT IN REACH.
--- NOTE | 2019-01-15 07:46 | NUR ---
BEDSIDE REPORT.. PT RESTING IN BED RR EVEN SHALLOW AT 16 BPM. NO DISTRESS NOTED PT APPEARS TO BE SLEEPING, NO DISTRESS NOTED.
--- NOTE | 2019-01-15 09:37 | NUR ---
PATIENT RESTING IN BED TALKING TO SECOND VP HR ASSESSMENT. PATIENT WOULD LIKE TO TAKE A SHOWER LATER THIS AM. CALL BUTTON IN REACH. FRESH ICE WATER. NO OTHER NEEDS AT THIS TIME.
[2019-01-15] MEDS ORDERED: BACTRIM DS TAB1 EACH PO (10:04)
[2019-01-15] MEDS ORDERED: LAMISIL AT12 G1 TOP (10:05)
[2019-01-15] MEDS ORDERED: NYSTOP60 GM TOP (10:07)
--- NOTE | 2019-01-15 10:19 | NUR ---
CORBY RAHMAN CURRENTLY TALKING WITH OFFICE TO ENSURE FOLLOW UP WITH PCP AND .
--- NOTE | 2019-01-15 12:01 | NUR ---
PT SITITNG UP IN RECLINER, NO COMPLAINTS OF PAIN OR NAUSEA. PT ALERT AND ORIENTED. PLANS TO HAVE LUNCH BEFORE DISCHARGE.
--- NOTE | 2019-01-15 12:30 | NUR ---
PT EDUCATION PACKET AND DISCHARGE EDUCATIONS PROVIDED ON FOLLOW UP PLAN WITH PCP AND THROUGH 'S OFFICE. PT TO CONTINUE TO TAKE ABX, SCRIPT SENT TO PHARMACY, DISCUSSED MEDICATIONS NEW AND CHRONIC, SIDE EFFECTS AND LAST DOSE NEXT DOSE. DISCUSSED PT NEED TO STAY HYDRATED WITH WATER. V/S STABLE, IV SITE REMOVED WNL TIP INTACT. PT ABLE TO VERBALIZE ALL EDUCATIONS BACK.
== END 2019-01-15 12:53 | disposition home or self-care (01) | DRG 690 ==
LOC: ED 12:09 → CCU 12:10 → MS 01-13 13:13
PROVIDERS: ADMIT Student in an Organized Health Care Education/Training Program
DX: N10 Acute pyelonephritis (principal); B96.20 Unspecified Escherichia coli [E. coli] as the cause of diseases classified elsewhere; N40.1 Benign prostatic hyperplasia with lower urinary tract symptoms; E11.9 Type 2 diabetes mellitus without complications; M19.90 Unspecified osteoarthritis, unspecified site; K21.9 Gastro-esophageal reflux disease without esophagitis; F51.04 Psychophysiologic insomnia; M54.9 Dorsalgia, unspecified; G89.29 Other chronic pain; Z66 Do not resuscitate; Z79.84 Long term (current) use of oral hypoglycemic drugs; Z79.1 Long term (current) use of non-steroidal anti-inflammatories (NSAID); Z79.891 Long term (current) use of opiate analgesic; Z79.899 Other long term (current) drug therapy; Z88.5 Allergy status to narcotic agent; Z88.8 Allergy status to other drugs, medicaments and biological substances
CPT/HCPCS: 36415; 71046; 74177; 80048; 80053; 81001; 83605; 85025; 86703; 87070; 87077; 87088; 87186; 87205; 97161; 99285-25; J0696; J1200; J1650; J1815; J2060; J2405; J7030; J7120; Q9967

== ENCOUNTER 2021-08-05 08:50 | Day surgery (SDC) | payer MEDICARE, MEDICAID ==
[~2021-08-05] VITALS: Ht 180.3 cm; Wt 109.1 kg
[~2021-08-05 08:50] MED LIST changes: +BACTRIM DS TAB1 EACH PO; +LAMISIL AT12 G1 TOP; +NYSTOP60 GM TOP; +SYMBICORT 16010.2 GM INH; +VENTOLIN HFA18 GM INH; +VITAMIN D310 MC1 PO
[2021-08-05] MEDS ORDERED: MELOXICAM7.5 MG PO (09:36)
--- NOTE | 2021-08-05 12:29 | NUR ---
08/05/21 1229 Karlie Cook 1222- PT TO PACU IN LL POSITION. EYES CLOSED. REACTS TO VERBAL AND TACTILE STIMULI. DOES NOT FOLLOW COMMANDS AND FALLS QUICKLY BACK TO SLEEP. BREATHING EASY AND UNLABORED. SPO2 >90% ON 2 L O2 VIA NC. 1228- PT CONTINUES TO SLEEP. HOB ELEVATED. BREATHING EASY AND UNLABORED. SPO2 >90% ON 2 L O2 VIA NC.
--- NOTE | 2021-08-06 07:47 | OR ---
[facility] [address], [place] [address] Signed DATE OF OPERATION: 08/05/2021 SURGEON: Prashanth Leslie MD PREOPERATIVE DIAGNOSES: 1. Hemorrhoids. 2. Alternating intermittent constipation and diarrhea. 3. Father of colon cancer. 4. Screening. 5. Gastroesophageal reflux. 6. Vomiting. 7. Moderate-sized hiatal hernia, on barium swallow. 8. Daily non-steroidal anti-inflammatory drugs. POSTOPERATIVE DIAGNOSES: 1. Moderate-sized hiatal hernia (40-35 cm). 2. Long segment Austin's esophagus. 3. Mild diffuse gastritis. 4. Possible distal esophageal ulcer just above hiatal hernia. 5. Moderate sigmoid diverticulosis. 6. Moderate internal hemorrhoids. 7. 4 mm polyp at 8 cm. PROCEDURES: 1. EGD with biopsies of the duodenum, antrum, and Z-line. 2. Colonoscopy with hot biopsy. ESTIMATED BLOOD LOSS: None. INDICATIONS: Maurice is a 66-year-old diabetic gentleman, I have known for many years. In 2019, he came and he was hoping to do his initial screening colonoscopy. However, he needed his knee replaced at that time. The COVID pandemic then ensued and therefore, he is just coming now for his colonoscopy. He has a history of hemorrhoids. He said he has intermittent constipation and diarrhea. He is also quite worried about acid reflux. He said he cannot lie supine because of the acid reflux and vomiting. He always has to use a pillow to sleep. He tries not to eat before going to bed. He went to his primary care provider. A barium swallow was ordered and he has a moderate-sized hiatal hernia. There were no motility issues. There was no stricture and no complaints of esophageal Electronically Signed By: PRASHANTH LESLIE MD 08/06/21 0747 PATIENT NAME: JONO MENDOZA JR OPERATIVE REPORT DATE OF : 53 REPORT #: [id number] PHYSICIAN: PRASHANTH LESLIE MD PCP: FELA JACOBS REPORT IS CONFIDENTIAL AND NOT TO BE RELEASED WITHOUT AUTHORIZATION [facility] [address], [place] [address] Signed dysphagia. He comes today with his significant other. He has been using Prilosec, but is supplementing quite a bit with Tums. He has been using daily narcotics and meloxicam because of various arthritis issues and injuries. He also told me he has claustrophobic and has panic attacks. In fact, he was pretty anxious as we were entering the endoscopy suite. He said he can also wake up pretty rough in recovery room. He is also pretty confident that his father had colon cancer. In the office, I had given Maurice and his girlfriend pamphlets on both upper and lower endoscopy. We had reviewed those in detail. He understands there is risk including, but not limited to gas, bloating, crampy abdominal pain, bleeding, perforation requiring surgery, and missed diagnosis. We had also reviewed the bowel prep quite in depth. Because of the Maurice's various issues including his full round face, heavy chest and abdomen and his daily need for narcotics and so forth, we did have moderate anesthesia care. That proved to be a swann decision. He had expressed understanding and wished to proceed. PROCEDURE NOTE: After talking to Maurice and his girlfriend in preoperative area, we took Maurice in to the endoscopy suite. He was placed in the supine semi-recumbent position. A bite block was utilized. He was given monitored anesthesia care by our nurse dental billing specialist to include propofol. The adult gastroscope was introduced and advanced under direct visualization of camera. The vocal cords and arytenoids were unremarkable. As we came down the esophagus, we went through a segment of Austin's through a moderate-sized hiatal hernia and out into the stomach. The scope was then passed out through the pyloric channel into the duodenum. The duodenum was unremarkable. We went ahead and took a biopsy of the duodenum for the history of a diarrhea. Very minimal irritation in the pyloric channel. The stomach showed [id number] diffuse erythematous changes consistent with gastritis. We went ahead and took a biopsy of the antrum for CLOtest as well as pathologic review. Upon retroflexion of scope, one can easily see a moderate-sized hiatal hernia. The scope was withdrawn up through the area of the GE junction, which was compliant without stricture. We measured his hiatal hernia from about 40 cm up to about 35 cm. However, he appears to have a long segment Austin's esophagus extending several centimeters above that. Just above his hiatal hernia, there was probably esophageal ulceration. We taken a biopsy as close to that as we could. We took several biopsies around the edge of the Z-line. Otherwise, the middle and upper esophagus were unremarkable. After this, the gas was suctioned out and the gastroscope removed. Jono tolerated the upper endoscopy quite well. Maurice was rotated into the left lateral decubitus position. He was maintained on monitored anesthesia care with propofol per our nurse dental billing specialist. A digital rectal exam was performed and really not much in the way of external hemorrhoid tissue. He has good sphincter tone. We did not feel any masses. We did not get a good sense of his prostate gland on this occasion. It was certainly indurated. The adult colonoscope had been introduced and then advanced quite readily around into the cecum under direct Electronically Signed By: PRASHANTH LESLIE MD 08/06/21 0747 PATIENT NAME: JONO MENDOZA JR OPERATIVE REPORT DATE OF : 53 REPORT #: [id number] PHYSICIAN: PRASHANTH LESLIE MD PCP: FELA JACOBS REPORT IS CONFIDENTIAL AND NOT TO BE RELEASED WITHOUT AUTHORIZATION [facility] [address] [place] [id number] Signed visualization of camera without difficulty. His prep was quite good. We could easily see the appendiceal orifice and the ileocecal valve. The scope was then slowly withdrawn. We can see that he has moderate sigmoid diverticulosis. They were moderate in number, moderate in size, and scattered about. Once in the rectum, the scope had been retroflexed and we could see that he does have a moderate-sized internal hemorrhoid columns. We also saw just a small 4 mm polyp at around 8 cm up into the rectum. It was easily removed with the help of hot biopsy forceps. After this, the gas was suctioned out and the colonoscope removed. Maurice tolerated the lower endoscopy quite well. RECOMMENDATIONS: Maurice will return to my office in 7 to 14 days to review his results. He said he is strongly considering having surgery for his hiatal hernia. Prashanth Leslie MD ALB/MODL /[id number] cc: MD Fela Heath FNP-C Copies: PRASHANTH LESLIE MD ~ Electronically Signed By: PRASHANTH LESLIE MD 08/06/21 0747 PATIENT NAME: JONO MENDOZA OPERATIVE REPORT DATE OF : 53 REPORT #: [id number] PHYSICIAN: PRASHANTH LESLIE MD PCP: FELA JACOBS REPORT IS CONFIDENTIAL AND NOT TO BE RELEASED WITHOUT AUTHORIZATION
--- NOTE | 2021-08-07 16:14 | PATH ---
[facility] [address], [place] [address] Signed SPECIMEN(S): A DUODENAL BIOPSY SPECIMEN(S): B ANTRUM/PYLORUS BIOPSY SPECIMEN(S): C GE JUNCTION BIOPSY SPECIMEN(S): D ESOPHAGEAL BIOPSY Z-LINE SPECIMEN(S): E RECTAL POLYP AT 8 CM SPECIMEN SOURCE: A. DUODENAL BIOPSY B. ANTRUM/PYLORUS BIOPSY C. GE JUNCTION BIOPSY D. ESOPHAGEAL BIOPSY Z-LINE E. RECTAL POLYP AT 8 CM CLINICAL HISTORY: Esophagogastroduodenoscopy, colonoscopy. Hemorrhoids, constipation/diarrhea, GERD, vomiting, hiatal hernia. Post: Gastroduodenitis, mild hiatal hernia, Austin's esophagus, diverticulosis, polyp x 1. FINAL PATHOLOGIC DIAGNOSIS: A. Duodenum, biopsy: - Duodenal mucosa with no histopathologic abnormality. - Negative for increased intraepithelial lymphocytes or villous blunting. - Negative for dysplasia or malignancy. B. Stomach, antrum/pylorus, biopsy: - Antral/oxyntic mucosa with mild chronic, inactive gastritis. - Negative for Helicobacter organisms on HE stain. - Negative for dysplasia or malignancy. C. Gastroesophageal junction, biopsy: - Intestinal metaplasia arising in cardia type mucosa. - Negative for dysplasia or malignancy. D. Esophagus, Z-line, biopsy: - Intestinal metaplasia arising in cardia type mucosa with chronic inflammation and reactive changes, see comment. - Squamous mucosa with no histopathologic abnormality. - Negative for dysplasia or malignancy. E. Rectum, polyp at 8 cm, polypectomy: - Fragments of tubular adenoma. - Negative for high-grade dysplasia or malignancy. COMMENT: PATIENT NAME: JONO MENDOZA JR PATHOLOGY DATE OF : 53 REPORT #: [id number] PHYSICIAN: DESIREE LARRY PCP: FELA JACOBS REPORT IS CONFIDENTIAL AND NOT TO BE RELEASED WITHOUT AUTHORIZATION [facility] [address], [place] [address] Signed Regarding specimen D: The findings are compatible with Austin's esophagus in the correct clinical setting. Clinical correlation is required. NAL:cml:C2NR MICROSCOPIC EXAMINATION: Histologic sections of all submitted blocks are examined by light microscopy. These findings, together with the gross examination, support the pathologic diagnosis. GROSS DESCRIPTION: Five specimens are received in five containers, labeled "FB." A. The specimen, labeled "FB, duodenum biopsy," is received in formalin and consists of one ware soft tissue fragment that measures 0.2 cm in greatest dimension. The specimen is entirely submitted in cassette (A1). B. The specimen, labeled "FB, antrum biopsy," is received in formalin and consists of one ware soft tissue fragment that measures 0.3 cm in greatest dimension. The specimen is entirely submitted in cassette (B1). C. The specimen, labeled "FB, GE junction biopsy," is received in formalin and consists of one ware soft tissue fragment that measures 0.2 cm in greatest dimension. The specimen is entirely submitted in cassette (C1). D. The specimen, labeled "FB, esophagus biopsy Z-line," is received in formalin and consists of two ware soft tissue fragments that measure 0.3-0.5 cm in greatest dimension. The specimen is entirely submitted in cassette (D1). E. The specimen, labeled "FB, rectum polyp at 8 cm," is received in formalin and consists of two ware soft tissue fragments that measure 0.1-0.2 cm in greatest dimension. The specimen is entirely submitted in cassette (E1). JS (under the direct supervision of a pathologist) The Gross Description was prepared using a voice recognition system. The report was reviewed for accuracy; however, sound-alike word errors, addition and/or deletions may occur. If there is any question about this report, please contact Client Services. PERFORMING LABORATORY: The technical component was performed by [facility], [address] [place] [id number] (Petroleum Inspector: Zina Mcintyre MD; CLIA# [id number]).Professional interpretation was performed by PATIENT NAME: JONO MENDOZA JR PATHOLOGY DATE OF : 53 REPORT #: [id number] PHYSICIAN: DESIREE LARRY PCP: FELA JACOBS REPORT IS CONFIDENTIAL AND NOT TO BE RELEASED WITHOUT AUTHORIZATION [facility] [address], [place] [address] Signed [facility], [address] [address] (CLIA# [id number]). Diagnostician: Lilli Palacio MD Pathologist Electronically Signed 08/07/2021 Copies: ~ PATIENT NAME: JONO MENDOZA JR PATHOLOGY DATE OF : 53 REPORT #: [id number] PHYSICIAN: DESIREE PATHOLOGY PCP: FELA JACOBS REPORT IS CONFIDENTIAL AND NOT TO BE RELEASED WITHOUT AUTHORIZATION
== END 2021-08-05 13:15 | disposition home or self-care (01) ==
LOC: DS 08:50 → OPS 08:50 → DS 10:30 → OPS 10:30
PROVIDERS: ATTEND Colon & Rectal Surgery
PROC: 0DB68ZZ Excision of Stomach, Via Natural or Artificial Opening Endoscopic (ICD-10-PCS; principal; 2021-08-05 10:30)
PROC: 0DBP8ZZ Excision of Rectum, Via Natural or Artificial Opening Endoscopic (ICD-10-PCS; 2021-08-05 10:30)
DX: Z12.11 Encounter for screening for malignant neoplasm of colon (principal); K29.50 Unspecified chronic gastritis without bleeding; D12.8 Benign neoplasm of rectum; R19.7 Diarrhea, unspecified; K59.09 Other constipation; K21.00 Gastro-esophageal reflux disease with esophagitis, without bleeding; R11.10 Vomiting, unspecified; K44.9 Diaphragmatic hernia without obstruction or gangrene; K22.70 Barrett's esophagus without dysplasia; K57.30 Diverticulosis of large intestine without perforation or abscess without bleeding; K64.8 Other hemorrhoids; J45.40 Moderate persistent asthma, uncomplicated; E55.9 Vitamin D deficiency, unspecified; N40.0 Benign prostatic hyperplasia without lower urinary tract symptoms; E11.9 Type 2 diabetes mellitus without complications; I10 Essential (primary) hypertension; Z80.0 Family history of malignant neoplasm of digestive organs; Z79.1 Long term (current) use of non-steroidal anti-inflammatories (NSAID); Z88.5 Allergy status to narcotic agent
CPT/HCPCS: 87077; J2704; J7121

== ENCOUNTER 2022-01-07 10:56 | Emergency (ER) | payer MEDICARE, MEDICAID ==
[~2022-01-07] VITALS: Ht 180.3 cm; Wt 104.9 kg
[~2022-01-07 10:56] MED LIST changes: +MELOXICAM7.5 MG PO
--- OUTSIDE RECORDS SUMMARY | 2022-01-07 10:58 | XMS ---
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 EAyo VISIT COUNT (12 MO.) Bryanna Garg TOTAL 1 NOTE: Visits indicate total known visits. ED/UCC VISIT TRACKING (12 MO.) 01/07/2022 10:57 [facility] [place] TYPE: Emergency COMPLAINT: - R SIDE ABD PAIN INPATIENT VISIT TRACKING (12 MO.) No inpatient visits to display in this time frame [email or web address]
[2022-01-07] MEDS ORDERED: METFORMIN HCL500 M1 PO (12:18)
[2022-01-07] MEDS ORDERED: ONDANSETRON ODT8 MG PO (18:14)
== END 2022-01-07 18:37 | disposition home or self-care (01) ==
LOC: ED 10:56
DX: T18.108A Unspecified foreign body in esophagus causing other injury, initial encounter (principal); R91.8 Other nonspecific abnormal finding of lung field; Z88.2 Allergy status to sulfonamides; Z88.5 Allergy status to narcotic agent; Z88.6 Allergy status to analgesic agent
CPT/HCPCS: 36415; 71045; 71046; 71260; 76705; 80053; 81001; 83690; 85025; 96374; 96375; 99284-25; A9270; J1885; J2060; J2405; Q9967

== ENCOUNTER 2022-03-30 13:43 | Inpatient (IN) | payer MEDICARE, MEDICAID ==
[~2022-03-30] VITALS: Ht 180.3 cm; Wt 102.9 kg
[~2022-03-30 13:43] MED LIST changes: +METFORMIN HCL500 M1 PO
--- OUTSIDE RECORDS SUMMARY | 2022-03-30 13:46 | XMS ---
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 EAyo VISIT COUNT (12 MO.) Ramila Garg TOTAL 2 NOTE: Visits indicate total known visits. ED/UCC VISIT TRACKING (12 MO.) 03/30/2022 13:44 [facility] TYPE: Emergency COMPLAINT: - CHEST PAIN, SOB 01/07/2022 10:57 [facility] [place] TYPE: Emergency COMPLAINT: - R SIDE ABD PAIN DIAGNOSES: - Allergy status to analgesic agent - Right upper quadrant pain - Unspecified foreign body in esophagus causing other injury, initial encounter - Other nonspecific abnormal finding of lung field - Allergy status to sulfonamides - Allergy status to narcotic agent INPATIENT VISIT TRACKING (12 MO.) No inpatient visits to display in this time frame [email or web address]
--- NOTE | 2022-03-30 18:54 | EKG ---
[facility] [address] [facility] [place] [address] Signed Sinus tachycardia Inferior infarct , age undetermined Abnormal ECG Confirmed by Susan Falk MD () on 03/30/2022 6:54:31 PM Electronically Signed By: SUSAN FALK MD 03/30/221853 PATIENT NAME: KELLYJONO Electrocardiogram DATE OF : 53 PHYSICIAN: SUSAN FALK MD REPORT #: [id number] REPORT IS CONFIDENTIAL AND NOT TO BE RELEASED WITHOUT AUTHORIZATION
[2022-03-31] MEDS ORDERED: HYDROCODON-ACE1 EA10 PO (08:19)
[2022-03-31] MEDS ORDERED: PREDNISONE10 MG PO (08:19)
[2022-03-31] MEDS ORDERED: DULOXETINE HCL60 MG PO (08:20)
[2022-03-31] MEDS ORDERED: SILDENAFIL CITR50 MG PO (13:47)
[2022-03-31] MEDS ORDERED: ZOLPIDEM TART12.5 MG PO (13:50)
[2022-03-31] MEDS ORDERED: GABAPENTIN600 MG PO (16:04)
--- NOTE | 2022-03-31 20:55 | EKG ---
[facility] [address] [place] [facility] [place] [address] Signed Normal sinus rhythm Inferior infarct (cited on or before 30-MAR-2022) Abnormal ECG When compared with ECG of 30-MAR-2022 13:53, No significant change was found Confirmed by Susan Falk MD () on 03/31/2022 8:55:31 PM Electronically Signed By: SUSNA FALK MD 03/31/222054 PATIENT NAME: JONO MENDOZA JR Electrocardiogram DATE OF : 53 PHYSICIAN: SUSAN FALK MD REPORT #: [id number] REPORT IS CONFIDENTIAL AND NOT TO BE RELEASED WITHOUT AUTHORIZATION
[2022-04-02] MEDS ORDERED: CEFDINIR300 MG PO (10:05)
== END 2022-04-02 12:05 | disposition home or self-care (01) | DRG 871 ==
LOC: ED 13:43 → MS 13:45
PROVIDERS: ADMIT Family Medicine; ATTEND Internal Medicine
DX: A40.3 Sepsis due to Streptococcus pneumoniae (principal); J13 Pneumonia due to Streptococcus pneumoniae; Z20.822 Contact with and (suspected) exposure to COVID-19; Z66 Do not resuscitate; R07.9 Chest pain, unspecified; E11.65 Type 2 diabetes mellitus with hyperglycemia; I10 Essential (primary) hypertension; K44.9 Diaphragmatic hernia without obstruction or gangrene; R91.8 Other nonspecific abnormal finding of lung field; Z96.652 Presence of left artificial knee joint; Z87.442 Personal history of urinary calculi; Z98.890 Other specified postprocedural states; Z98.1 Arthrodesis status; Z88.2 Allergy status to sulfonamides; Z88.5 Allergy status to narcotic agent; Z88.8 Allergy status to other drugs, medicaments and biological substances; Z79.899 Other long term (current) drug therapy
CPT/HCPCS: 36415; 71045; 71260; 80048; 80053; 81003; 83605; 83690; 83735; 84100; 84484; 85025; 85060; 85379; 85610; 87449; 87502; 87899; 93005; 93010; 94667; 94668; 94760; A9270; C9113; C9803; J0456; J0696; J1650; J1815; J1885; J2060; J3010; J7030; J7060; J7512; Q9967; U0003

== ENCOUNTER 2023-02-20 17:08 | Emergency (ER) | payer MEDICARE, OTHER ==
[~2023-02-20] VITALS: Ht 180.3 cm; Wt 99.7 kg
[~2023-02-20 17:08] MED LIST changes: +CEFDINIR300 MG PO; +DULOXETINE HCL60 MG PO; +HYDROCODON-ACE1 EA10 PO; +PREDNISONE10 MG PO; +SILDENAFIL CITR50 MG PO; +ZOLPIDEM TART12.5 MG PO
[2023-02-20 18:38] VITALS: BP 147/105
== END 2023-02-20 18:39 | disposition home or self-care (01) ==
LOC: ED 17:08
DX: M25.521 Pain in right elbow (principal); Z88.2 Allergy status to sulfonamides; Z88.5 Allergy status to narcotic agent; Z88.8 Allergy status to other drugs, medicaments and biological substances; Z96.652 Presence of left artificial knee joint; Z79.899 Other long term (current) drug therapy; Z79.84 Long term (current) use of oral hypoglycemic drugs; Z79.52 Long term (current) use of systemic steroids; Z48.01 Encounter for change or removal of surgical wound dressing; Z98.890 Other specified postprocedural states
CPT/HCPCS: 99283

== ENCOUNTER 2025-03-01 03:08 | Emergency (ER) | payer MEDICARE ==
[~2025-03-01] VITALS: Ht 180.3 cm; Wt 98.7 kg
[~2025-03-01 03:08] MED LIST changes: +HYDROCODON-ACE1 EA11 PO; +METHYLPREDNISOLO4 M1 PO
[2025-03-01] MEDS ORDERED: TRAMADOL HCL50 MG PO (03:21)
[2025-03-01 04:00] LABS: BASOPHILS 0.6 % (0.2-1.2); EOSINOPHILS 1.5 % (0.8-7.0); LYMPHOCYTES 14.7 % (21.8-53.1); MCH 27.7 PG (25.7-32.2); MCHC 34.1 g/dL (32.3-36.5); MCV 81.1 fL (79.0-92.2); MONOCYTES 8.1 % (5.3-12.2); NEUTROPHILS 74.2 % (34.0-67.9); RBC 4.88 M/uL (4.63-6.08)
[2025-03-01 04:09] LABS: BLOOD/HGB, URINE LARGE (Negative); KETONE, URINE TRACE (Negative); LEUK ESTERASE, URINE TRACE (negative); NITRITE, URINE NEGATIVE (negative)
[2025-03-01 04:14] LABS: EPITHELIAL CELLS, URINE SQUAMOUS 1+ /lpf (0-1+)
[2025-03-01 04:15] LABS: BACTERIA, URINE RARE /hpf (negative); CASTS, URINE NONE SEEN \\lpf; CRYSTALS, URINE NONE SEEN (0-1+); REFLEX CULTURE, URINE No (No)
[2025-03-01 04:15] LABS: ALT (SGPT) 15.0 U/L (14-59); AST (SGOT) 7.0 U/L (15-37); GLOMERULAR FILTRATION RATE,EST 63.0 mL/min (>60); PROTEIN, TOTAL 6.8 g/dL (6.4-8.2); UREA NITROGEN 18.0 mg/dL (7-18)
[2025-03-01] MEDS ORDERED: SODIUM CHLORIDE 0.9% 1,000 ML IV SCH (04:30)
[2025-03-01 05:28] LABS: LACTIC ACID, BLOOD 1.1 mmol/L (0.4-2.0)
[2025-03-01 06:21] VITALS: BP 109/55
== END 2025-03-01 06:37 | disposition home or self-care (01) ==
LOC: ED 03:08
PROVIDERS: Emergency Medicine
DX: G89.18 Other acute postprocedural pain (principal); N48.89 Other specified disorders of penis; T83.031A Leakage of indwelling urethral catheter, initial encounter; E11.9 Type 2 diabetes mellitus without complications; J45.909 Unspecified asthma, uncomplicated; Z88.2 Allergy status to sulfonamides; Z88.5 Allergy status to narcotic agent; Z79.899 Other long term (current) drug therapy
CPT/HCPCS: 36415; 51798; 74177; 80053; 81001; 83605; 83690; 85025; 99284-25; J7030; Q9967